=== PATIENT | female | born 1960 | race Asian ===

== ENCOUNTER 2017-11-14 22:41 | Emergency (ER) | payer OTHER ==
[~2017-11-14 22:41] MED LIST: BENZ1TAB43 PO; BENZTROPINE0.5 MG PO; CYPROHEPTADINE HCL PO; HALO5TAB10 PO; INVEGA SUST156 MG/ML IM; INVEGA SUST156 MG/ML INJ; LAMICTAL150 MG PO; LIPITOR10 MG PO; LORA1TAB17 PO; LOSA50TA PO; MIRALAX3350 N1 PO; OMEPRAZOLE20.6 MGDR PO; PALI3TAB PO; PHENYTOIN EX100 MG PO; PHENYTOIN EX200 MG PO; SEROQUEL25 MG PO; SEROQUEL50 MG PO; VALP250S3 PO; VIMPAT200 M1 PO
[2017-11-14 23:49] LABS: PLATELET COUNT 329 K/uL (152-353)
[2017-11-15 00:49] VITALS: BP 110/69; TEMP 98.8
[2017-11-15] MEDS ORDERED: TYLENOL325 MG PO (05:09)
[2017-11-15] MEDS ORDERED: PHENYTOIN EX100 MG PO (05:14)
[2017-11-29] MEDS ORDERED: BENZ1TAB43 PO (08:56)
[2017-11-29] MEDS ORDERED: AMANTADINE100 MG PO (08:56)
[2017-11-29] MEDS ORDERED: MULTTAB52 PO (08:56)
[2017-11-29] MEDS ORDERED: INVEGA SUST156 MG/ML INJ (08:56)
[2017-11-29] MEDS ORDERED: POTA10CA3 PO (08:57)
[2017-11-29] MEDS ORDERED: HALO5TAB10 PO ×2 (08:57)
[2017-11-29] MEDS ORDERED: ZIPR20CA PO (08:57)
[2017-12-31] MEDS ORDERED: SYMMETREL 100MG CAP PO (08:21)
[2017-12-31] MEDS ORDERED: DOCU100C10 PO (08:21)
[2017-12-31] MEDS ORDERED: ZIPR20IN IM (08:21)
[2017-12-31] MEDS ORDERED: OLAN10INJ IM (08:21)
[2017-12-31] MEDS ORDERED: LAMO100T PO (08:21)
[2017-12-31] MEDS ORDERED: HALO50IN4 IM (08:21)
[2017-12-31] MEDS ORDERED: PHENYTOIN EX100 MG PO (08:21)
[2017-12-31] MEDS ORDERED: TRIMSOL OPTH (08:21)
[2017-12-31] MEDS ORDERED: MAGNSUS68 PO (08:21)
[2017-12-31] MEDS ORDERED: LORA2INJ21 IM (08:21)
[2017-12-31] MEDS ORDERED: BISA10SU8 RE (08:21)
[2017-12-31] MEDS ORDERED: BENZ1TAB43 PO (08:21)
[2017-12-31] MEDS ORDERED: MUPI2OIN2 TOP (08:21)
[2017-12-31] MEDS ORDERED: DIPH50IN IM (08:21)
[2017-12-31] MEDS ORDERED: PHEN50CH2 PO (08:21)
[2017-12-31] MEDS ORDERED: HALO5INJ3 IM (08:21)
[2017-12-31] MEDS ORDERED: METH10TA64 PO (08:21)
== END 2017-11-15 00:50 | disposition other institution (70) ==
LOC: ED 22:41
PROVIDERS: Internal Medicine
DX: F25.9 Schizoaffective disorder, unspecified (principal); Z04.6 Encounter for general psychiatric examination, requested by authority
CPT/HCPCS: 36415; 80053; 85027; 93005; 99285

== ENCOUNTER 2017-12-07 02:52 | Emergency (ER) | payer OTHER ==
[~2017-12-07] VITALS: Ht 172.7 cm; Wt 69.9 kg
[~2017-12-07 02:52] MED LIST changes: +AMANTADINE100 MG PO; +MULTTAB52 PO; +POTA10CA3 PO; +TYLENOL325 MG PO; +ZIPR20CA PO
[2017-12-07 03:07] VITALS: BP 118/66; TEMP 98.3
[2017-12-07 03:11] LABS: PLATELET COUNT 323 K/uL (152-353)
[2017-12-07 03:20] LABS: POTASSIUM 3.9 mmol/L (3.6-5.2)
[2017-12-31] MEDS ORDERED: HALO50IN4 IM (08:21)
[2017-12-31] MEDS ORDERED: BENZ1TAB43 PO (08:21)
[2017-12-31] MEDS ORDERED: SYMMETREL 100MG CAP PO (08:21)
[2017-12-31] MEDS ORDERED: MUPI2OIN2 TOP (08:21)
[2017-12-31] MEDS ORDERED: PHEN50CH2 PO (08:21)
[2017-12-31] MEDS ORDERED: ZIPR20IN IM (08:21)
[2017-12-31] MEDS ORDERED: BISA10SU8 RE (08:21)
[2017-12-31] MEDS ORDERED: LAMO100T PO (08:21)
[2017-12-31] MEDS ORDERED: METH10TA64 PO (08:21)
[2017-12-31] MEDS ORDERED: PHENYTOIN EX100 MG PO (08:21)
[2017-12-31] MEDS ORDERED: DOCU100C10 PO (08:21)
[2017-12-31] MEDS ORDERED: TRIMSOL OPTH (08:21)
[2017-12-31] MEDS ORDERED: HALO5INJ3 IM (08:21)
[2017-12-31] MEDS ORDERED: MAGNSUS68 PO (08:21)
[2017-12-31] MEDS ORDERED: DIPH50IN IM (08:21)
[2017-12-31] MEDS ORDERED: OLAN10INJ IM (08:21)
[2017-12-31] MEDS ORDERED: LORA2INJ21 IM (08:21)
== END 2017-12-07 06:01 | disposition other institution (70) ==
LOC: ED 02:52
PROVIDERS: Family Medicine
DX: Z04.6 Encounter for general psychiatric examination, requested by authority (principal); F20.89 Other schizophrenia
CPT/HCPCS: 36415; 80053; 81000; 85027; 93005; 99285

== ENCOUNTER 2020-08-01 13:37 | Emergency (ER) | payer OTHER ==
[~2020-08-01] VITALS: Ht 167.6 cm; Wt 60.8 kg
[2020-08-01 13:37] VITALS: BP 114/73; TEMP 97.7
[~2020-08-01 13:37] MED LIST changes: +BISA10SU8 RE; +DIPH50IN IM; +DOCU100C10 PO; +HALO50IN4 IM; +HALO5INJ3 IM; +LAMO100T PO; +LORA2INJ21 IM; +MAGNSUS68 PO; +METH10TA64 PO; +MUPI2OIN2 TOP; +OLAN10INJ IM; +PHEN50CH2 PO; +SYMMETREL 100MG CAP PO; +TRIMSOL OPTH; +ZIPR20IN IM
[2020-08-01 14:11] LABS: PLATELET COUNT 336 K/uL (152-353)
[2020-08-01] MEDS ORDERED: OLANZAPINE7.5 MG PO (16:22)
[2020-08-01] MEDS ORDERED: BUSPIRONE HYDRO10 MG PO (16:23)
[2020-08-01] MEDS ORDERED: DIVA125C PO (16:24)
[2020-08-01] MEDS ORDERED: LACO200T PO (17:47)
== END 2020-08-01 14:55 | disposition still patient (30) ==
LOC: ED 13:37
PROVIDERS: Hospitalist
DX: F25.8 Other schizoaffective disorders (principal); F22 Delusional disorders; S00.81XA Abrasion of other part of head, initial encounter; R56.9 Unspecified convulsions; Z11.52 Encounter for screening for COVID-19; Z04.6 Encounter for general psychiatric examination, requested by authority
CPT/HCPCS: 80053; 85027; 87635; 93005; 99283; U0003

== ENCOUNTER 2021-02-14 21:54 | Emergency (ER) | payer OTHER ==
[~2021-02-14] VITALS: Ht 165.1 cm; Wt 69.4 kg
[2021-02-14 21:54] VITALS: BP 102/57; TEMP 96.6
[~2021-02-14 21:54] MED LIST changes: +BUSP15TAB2 PO; +BUSP5TAB2 PO; +BUSPIRONE HYDRO10 MG PO; +CHOL100034 PO; +DIVA125C PO; +DIVA250T PO; +FOLI1TAB26 PO; +LACO200T PO; +OLANZAPINE5 MG PO; +OLANZAPINE7.5 MG PO; +RISP1TAB PO
[2021-02-14 22:17] LABS: PLATELET COUNT 264 K/uL (152-353)
[2021-02-15] MEDS ORDERED: OLANZAPINE7.5 MG PO (00:28)
[2021-02-15] MEDS ORDERED: FERROUS SULF325 M1 PO (00:32)
[2021-02-15] MEDS ORDERED: RISPERDAL3 MG PO (00:37)
== END 2021-02-14 23:02 | disposition still patient (30) ==
LOC: ED 21:54
PROVIDERS: Hospitalist
DX: F20.89 Other schizophrenia (principal); R46.89 Other symptoms and signs involving appearance and behavior; Z11.52 Encounter for screening for COVID-19; Z04.6 Encounter for general psychiatric examination, requested by authority
CPT/HCPCS: 36415; 80053; 80164; 85027; 87635; 93005; 99283; U0003

== ENCOUNTER 2021-02-25 11:50 | Inpatient (IN) | payer OTHER ==
[~2021-02-25] VITALS: Ht 172.7 cm; Wt 65.5 kg
[2021-02-25] VITALS (7 sets, daily range): BP systolic 93–104; BP diastolic 38–55; TEMP 98–99.9; Ht 172.7 cm; Wt 65.5 kg
[~2021-02-25 11:50] MED LIST changes: +FERROUS SULF325 M1 PO; +RISPERDAL3 MG PO
[2021-02-26] VITALS (16 sets, daily range): BP systolic 90–110; BP diastolic 46–90; TEMP 98.5–99.8
[2021-02-26 09:31] LABS: PLATELET COUNT 203 K/uL (152-353)
[2021-02-26 09:35] LABS: POTASSIUM 4.3 mmol/L (3.6-5.2)
[2021-02-26] MEDS ORDERED: D 10001000 UNIT PO (14:37)
[2021-02-26] MEDS ORDERED: DIVALPROEX500 M1 PO (14:39)
[2021-02-26] MEDS ORDERED: FOLI1TAB26 PO (14:40)
[2021-02-26] MEDS ORDERED: OLANZAPINE10 M2 PO (14:48)
[2021-02-26] MEDS ORDERED: PHEN50CH2 PO (14:51)
[2021-02-26] MEDS ORDERED: PHENYTEK300 MG PO (15:00)
[2021-02-26] MEDS ORDERED: DOCU100C10 PO (15:02)
[2021-02-26] MEDS ORDERED: BENZ1TAB43 PO ×2 (15:13→15:37)
[2021-02-27] VITALS (11 sets, daily range): BP systolic 82–113; BP diastolic 41–92; TEMP 98.7–100
[2021-02-27 06:09] LABS: POTASSIUM 3.3 mmol/L (3.6-5.2)
[2021-02-27 06:49] LABS: PLATELET COUNT 164 K/uL (152-353)
[2021-02-28 00:11] VITALS: BP 97/55; TEMP 99.5
[2021-02-28 04:00] VITALS: BP 94/54; TEMP 99.2
[2021-02-28 06:08] LABS: POTASSIUM 4.1 mmol/L (3.6-5.2)
[2021-02-28 06:24] LABS: PLATELET COUNT 142 K/uL (152-353)
[2021-02-28 23:52] VITALS: BP 108/68; TEMP 99.1
[2021-03-01 03:56] VITALS: BP 92/56; TEMP 99.3
[2021-03-01 05:49] LABS: PLATELET COUNT 184 K/uL (152-353)
[2021-03-01 08:00] VITALS: BP 108/51; TEMP 98.5
[2021-03-01 15:56] VITALS: BP 116/74; TEMP 98.7
[2021-03-01 19:56] VITALS: BP 108/51; TEMP 98.5
[2021-03-02 00:05] VITALS: BP 102/63; TEMP 98.2
[2021-03-02 04:00] VITALS: BP 113/67; TEMP 98.8
[2021-03-02 05:06] LABS: PLATELET COUNT 185 K/uL (152-353)
[2021-03-02 05:13] LABS: POTASSIUM 3.6 mmol/L (3.6-5.2)
[2021-03-02 07:56] VITALS: BP 113/69; TEMP 98.2
[2021-03-02 08:00] VITALS: BP 113/69; TEMP 98.2
[2021-03-03] MEDS ORDERED: PHENYTEK300 MG PO (12:23)
[2021-03-03] MEDS ORDERED: PHEN50CH2 PO (12:24)
== END 2021-03-02 15:30 | disposition other institution (70) | DRG 871 ==
LOC: ICU 11:50 → PCU 02-27 15:40
PROVIDERS: Internal Medicine Endocrinology, Diabetes & Metabolism; ADMIT Internal Medicine; ATTEND Internal Medicine
PROC: 30233N1 Transfusion of Nonautologous Red Blood Cells into Peripheral Vein, Percutaneous Approach (ICD-10-PCS; principal; 2021-02-26)
DX: A41.89 Other specified sepsis (principal); I63.89 Other cerebral infarction; G40.802 Other epilepsy, not intractable, without status epilepticus; N17.8 Other acute kidney failure; I95.89 Other hypotension; E11.9 Type 2 diabetes mellitus without complications; I10 Essential (primary) hypertension; D50.8 Other iron deficiency anemias; E78.49 Other hyperlipidemia; F25.0 Schizoaffective disorder, bipolar type
CPT/HCPCS: 36415; 80048; 80053; 80202; 81000; 82272; 83540; 85007; 85027; 86850; 86900; 86901; 86922; 94760; J0132; J1953; J2060; J2543; J2916; J3370; J3490; P9016